=== PATIENT | female | born 1940 | race Caucasian/White ===

== ENCOUNTER 2018-01-14 06:36 | Day surgery (SDC) | payer OTHER ==
[~2018-01-14 06:36] MED LIST: CALAN PO; CEFADROXIL500 MG PO; CLONAZEPAM1 MG PO; COD LIVER OIL1 EACH PO; FOSAMAX70 MG PO; INTEGRA PLUS C1 EACH PO; LOSARTAN POTAS100 MG PO; PANTOPRAZOLE SO40 MG PO; PERCOCET 5-3251 EACH PO; SYNTH PO; ZOCOR40 MG PO; ZOLOFT50 MG PO
[2018-01-14] MEDS ORDERED: ULTRAM50 MG PO (13:01)
[2018-01-14] MEDS ORDERED: CEFADROXIL500 MG PO (13:01)
== END 2018-01-14 14:30 | disposition home or self-care (01) ==
LOC: CIR.AMB 06:36
DX: G56.01 Carpal tunnel syndrome, right upper limb (principal); M65.841 Other synovitis and tenosynovitis, right hand